=== PATIENT | female | born 1950 | race Caucasian/White ===

== ENCOUNTER 2021-06-10 06:11 | Observation (INO) ==
[2021-06-10 06:41] LABS: ABS Basophils 0.1 10^3/ul (0-0.2); ABS Eosinophils 0.5 10^3/ul (0-0.6); ABS Lymphocytes 1.6 10^3/ul (1.0-4.8); ABS Monocytes 0.6 10^3/ul (0-0.8); ABS Neutrophils 3.5 10^3/ul (1.5-7.7); Eosinophil % 7.9 %; Hematocrit 26 % (35-47); Hemoglobin 8.4 g/dL (12.0-16.0); Lymphocyte % 25.5 %; Mean Corpuscular HGB Conc 32 g/dL (31-36); Mean Corpuscular Hemoglobin 26 pg (27-31); Mean Corpuscular Volume 81 fL (80-97); Mean Platelet Volume 7.8 fL (7.4-10.4); Platelet Count 438 10^3/uL (150-450); Red Blood Count 3.25 10^6 /uL (3.70-4.87); Red Cell Distribution Width 20 % (10-15); White Blood Count 6.2 10^3/uL (3.5-10.8)
[2021-06-10 06:57] LABS: ALT 11 U/L (7-52); AST 13 U/L (13-39); Albumin 3.1 g/dL (3.2-5.2); Albumin/Globulin Ratio 1.1 (1-3); Alkaline Phosphatase 91 U/L (35-149); Anion Gap 7 mmol/L (2-11); Blood Urea Nitrogen 9 mg/dL (6-24); C Reactive Protein 7.43 mg/L (<8.01); CO2 Carbon Dioxide 23 mmol/L (22-32); Calcium 7.8 mg/dL (8.6-10.3); Chloride 108 mmol/L (101-111); EGFR African American 140.3 (>60); EGFR Non-African American 115.9 (>60); Globulin 2.7 g/dL (2-4); Glucose 96 mg/dL (70-100); Potassium 3.1 mmol/L (3.5-5.0); Sodium 138 mmol/L (135-145); Total Protein 5.8 g/dL (6.4-8.9)
[2021-06-10 06:59] LABS: Troponin I 0.01 ng/mL (<0.03)
[2021-06-10] MEDS ORDERED: Albuterol HFA INHALER 8 gm MDI INH ONE (07:37)
[2021-06-10] MEDS ORDERED: Potassium Chlor 20 meq TAB.ER PO ONE (09:16)
[2021-06-10 09:51] LABS: Urine Appearance Clear; Urine Bilirubin Negative (Negative); Urine Blood Negative (Negative); Urine Color Straw; Urine Glucose Negative (Negative); Urine Ketones Negative (Negative); Urine Nitrite Negative (Negative); Urine Protein Negative (Negative); Urine Specific Gravity 1.005 (1.002-1.030); Urine Urobilinogen Negative (Negative)
[2021-06-10 09:55] LABS: Urine Bacteria 1+ (Absent); Urine Red Blood Cell Trace(0-2/hpf) (Absent); Urine Squamous Epithelial Cell Present (Absent); Urine White Blood Cell Trace(0-5/hpf) (Absent)
[2021-06-10] MEDS ORDERED: Albuterol HFA INHALER 8 gm MDI INH PRN (11:10)
[2021-06-10] MEDS ORDERED: Al Hydrox/Mg Hydrox/Simet LIQ 30 ML UDC PO PRN (11:41)
[2021-06-10 13:56] LABS: Folate > 20.00 ng/mL (5.90-24.80); Vitamin B12 133 pg/mL (180-914)
[2021-06-10] MEDS: Enoxaparin 30 MG/0.3 ML SYR SUBCUT SCH (14:00)
[2021-06-10 15:16] LABS: % Iron Saturation 5 % (15-55); Iron 21 ug/dL (50-212); Total Iron Binding Capacity 406 mcg/dL (250-450); Transferrin 290 mg/dL (203-362); Unsaturated Iron Binding < 391 ug/dL
[2021-06-10] MEDS ORDERED: Albuterol/Ipratropium RESP(NF) MDI (Combivent Respimat) INH SCH (21:00)
[2021-06-11 05:33] LABS: ABS Lymphocytes 1.1 10^3/ul (1.0-4.8); ABS Monocytes 0.5 10^3/ul (0-0.8); Hematocrit 27 % (35-47); Hemoglobin 8.6 g/dL (12.0-16.0); Lymphocyte % 12.6 %; Mean Corpuscular HGB Conc 32 g/dL (31-36); Mean Corpuscular Hemoglobin 26 pg (27-31); Mean Corpuscular Volume 81 fL (80-97); Mean Platelet Volume 7.7 fL (7.4-10.4); Platelet Count 509 10^3/uL (150-450); Red Cell Distribution Width 20 % (10-15); White Blood Count 8.7 10^3/uL (3.5-10.8)
[2021-06-11] MEDS ORDERED: Cyanocobalamin INJ 1,000 MCG/ML VIAL 1 ML VIAL IM ONE (08:00)
[2021-06-11 08:09] LABS: Calcium 8.9 mg/dL (8.6-10.3); EGFR African American 123.6 (>60); EGFR Non-African American 102.2 (>60); Potassium 3.6 mmol/L (3.5-5.0)
[2021-06-11] MEDS ORDERED: PTO: Albuterol/Ipratropium RESP(NF) MDI (Combivent Respimat) INH SCH (09:00)
[2021-06-11] MEDS ORDERED: Regadenoson 0.4 MG/5 ML SYRINGE ONE (09:47)
[2021-06-11 12:25] VITALS: BP 145/61
[2021-06-11] MEDS: Enoxaparin 30 MG/0.3 ML SYR SUBCUT SCH (12:39)
== END 2021-06-11 16:50 | disposition home or self-care (01) ==
LOC: MED 06:11 → ED 06:11
PROVIDERS: ADMIT Internal Medicine; ATTEND Internal Medicine